=== PATIENT | female | born 2000 | race African-American/Black ===

== ENCOUNTER 2018-12-31 06:35 | Inpatient (IN) ==
[2018-12-31 07:24] LABS: URINE SOURCE VOIDED
[2018-12-31 07:46] LABS: BILIRUBIN URINE NEGATIVE (NEGATIVE); BLOOD URINE NEGATIVE (NEGATIVE); CLARITY CLEAR (CLEAR); COLOR YELLOW; GLUCOSE URINE NEGATIVE (NEGATIVE); KETONE URINE TRACE mg/dL (NEGATIVE); LEUKOCYTES URINE 1+ (NEGATIVE); NITRITE URINE NEGATIVE (NEGATIVE); PROTEIN URINE 1+(30 mg/dL) mg/dL (NEGATIVE); UROBILINOGEN URINE 1 mg/dL
[2018-12-31 08:01] LABS: UR AMPHETAMINES QUAL NONE DETECTED (NONE DETECT); UR BARBITUATES QUAL NONE DETECTED (NONE DETECT); UR BENZODIAZEPIN QUAL NONE DETECTED (NONE DETECT); UR CANNABINOIDS QUAL NONE DETECTED (NONE DETECT); UR COCAINE QUAL NONE DETECTED (NONE DETECT); UR METHADONE QUAL NONE DETECTED (NONE DETECT); UR METHAMPHETAMINE QUAL NONE DETECTED (NONE DETECT); UR OPIATES QUAL NONE DETECTED (NONE DETECT); UR OXYCODONE QUAL NONE DETECTED (NONE DETECT); UR PCP QUAL NONE DETECTED (NONE DETECT); UR PROPOXYPHENE QUAL NONE DETECTED (NONE DETECT); UR TCA QUAL NONE DETECTED (NONE DETECT)
[2018-12-31] MEDS ORDERED: PEPCID PO ONE (08:32)
[2018-12-31] MEDS ORDERED: PEPCID PO PRN (08:32)
[2018-12-31] MEDS ORDERED: KEFZOL 1 GM/D5W 1 GM/50 ML IVPB IV PRN (08:32)
[2018-12-31] MEDS ORDERED: TYLENOL PO PRN (08:32)
[2018-12-31] MEDS ORDERED: REGLAN PO ONE (08:32)
[2018-12-31] MEDS ORDERED: ZOFRAN IV PRN (08:32)
[2018-12-31] MEDS ORDERED: PEPCID IV PRN (08:32)
[2018-12-31] MEDS ORDERED: PITOCIN 30 UNITS/NS 30 UNIT/500 ML IV.SOLN IV SCH (08:45)
[2018-12-31] MEDS ORDERED: SODIUM CHLORIDE 0.9% INJ SCH (08:45)
--- NOTE | 2018-12-31 08:48 | HISTORY AND PHYSICAL ---
HISTORY OF PRESENT ILLNESS: Ms. Grant is a 18-year-old G 1, P 0, at 39 weeks and 4 days, who presents to Labor and Delivery with complaint of rupture of membranes. The patient reporting good movement. Denies contractions or vaginal bleeding. The patient also denies fevers, chills, nausea, or vomiting. PAST MEDICAL HISTORY: Significant for anxiety, depression. MEDICATIONS: Include vitamins. PAST SURGICAL HISTORY: None. OBSTETRICAL HISTORY: Denies STI exposure. Menarche at age 10. OB HISTORY: G 1, P 0. ALLERGIES: Clindamycin. SOCIAL HISTORY: Denies tobacco, alcohol, or drug use. FAMILY HISTORY: Noncontributory. PHYSICAL EXAMINATION: VITAL SIGNS: Temperature 97 degrees Fahrenheit, pulse rate 76, respiration rate 16, blood pressure 117/61, O2 saturation is 100% on room air. GENERAL: No acute distress. Alert, awake, oriented x3. CARDIOVASCULAR: Regular rate and rhythm. Positive S1, S2. RESPIRATION: Clear to auscultation bilaterally. ABDOMEN: Gravid, soft, nontender to palpation. EXTREMITIES: Negative calf tenderness. 1+ edema bilaterally. GENITOURINARY: Sterile speculum exam: Positive rupture of membranes noted with ROM plus positive. Sterile vaginal exam 1 cm dilated, 70% effaced, -3, firm, posterior. Electronic monitoring. External monitoring category 1 tracing. Tocolysis, irregular contractions. LABS: GBS negative, Rh negative. ASSESSMENT: Ms. Grant is a 18-year-old, 1, para 0, at 39 weeks and 4 days, who presents to Labor and Delivery with spontaneous rupture of membranes, not in active labor. PLAN: 1. Admit to Labor and Delivery for augmentation of labor. 2. Obtain routine labor orders. 3. Augmentation with Pitocin. 4. Estimated weight 7 pounds. 5. Anticipate vaginal delivery. 6. Continue external monitoring.
[2018-12-31 09:08] LABS: BASO# 0.02 X1000 (0.0-0.2); BASO% 0.2 % (0.0-0.8); EOS# 0.01 X1000 (0.0-0.7); EOS% 0.1 % (0.0-10.0); HEMATOCRIT 37.7 % (37.0-47.0); HEMOGLOBIN 12.9 g/dL (12.0-16.0); IMM GRAN# 0.02 X1000 (0.0-0.04); IMM GRAN% 0.2 % (0.0-0.5); LYMPH# 2.67 X1000 (1.2-3.4); MCHC 34.2 g/dL (33-37); MCV 84.7 FL (81-99); MONO% 6.2 % (1.7-9.3); MPV 10.6 FL (7.4-10.4); NEUT# 4.88 X1000 (1.4-6.5); NEUT% 60.3 % (42.2-75.2); PLT 214 X1000 (130-400); RBC 4.45 XMIL (4.2-5.4); RDW 13.2 % (11.5-14.5)
[2018-12-31] MEDS: LR 1,000 ML IV SCH ×5 (09:42→22:56)
[2018-12-31] MEDS: STADOL IV PRN ×2 (10:00→12:49)
[2018-12-31] MEDS ORDERED: MINERAL OIL TOP PRN (10:09)
[2018-12-31] MEDS ORDERED: XYLOCAINE-MPF 1% INJ PRN (10:09)
[2018-12-31] MEDS ORDERED: NAROPIN 0.5% INJ ONE (13:44)
[2018-12-31] MEDS ORDERED: NAROPIN 0.2% INJ ONE (15:45)
[2018-12-31] MEDS ORDERED: FENTANYL-BUPIV-NS 2 MCG-0.1% 200 ML EPIDURAL SCH (16:00)
[2018-12-31] MEDS ORDERED: STADOL IV PRN (16:00)
[2018-12-31] MEDS ORDERED: SODIUM CHLORIDE 0.9% 0 ML ONE (16:52)
[2018-12-31] MEDS ORDERED: EPHEDRINE ONE (16:52)
[2018-12-31] MEDS ORDERED: BICITRA PO ONE (21:50)
[2018-12-31] MEDS ORDERED: REGLAN IV ONE (21:51)
[2018-12-31] MEDS ORDERED: NAROPIN 0.5% ONE (23:33)
[2019-01-01] MEDS ORDERED: TORADOL ONE (00:12)
[2019-01-01] MEDS ORDERED: PITOCIN ONE (00:12)
[2019-01-01] MEDS ORDERED: DURAMORPH ONE (00:24)
[2019-01-01] MEDS ORDERED: ZOFRAN ONE (00:30)
[2019-01-01] MEDS ORDERED: DULCOLAX PR PRN (01:14)
[2019-01-01] MEDS ORDERED: NORCO-5 PO PRN (01:14)
[2019-01-01] MEDS ORDERED: PITOCIN IM PRN (01:14)
[2019-01-01] MEDS ORDERED: PHENERGAN IM PRN (01:14)
[2019-01-01] MEDS ORDERED: BOOSTRIX VACCINE IM ONE (01:14)
[2019-01-01] MEDS ORDERED: HYDROXYZINE IM PRN (01:14)
[2019-01-01] MEDS ORDERED: PITOCIN 20 UNITS/NS 20 UNITS/1,000 ML IV.SOLN IV ONE (01:14)
[2019-01-01] MEDS ORDERED: M-M-R II VACCINE SUBQ ONE (01:14)
[2019-01-01] MEDS ORDERED: MYLICON PO PRN (01:14)
[2019-01-01] MEDS ORDERED: DEMEROL IM PRN (01:14)
[2019-01-01] MEDS ORDERED: DEMEROL PO PRN ×2 (01:14)
[2019-01-01] MEDS ORDERED: ATARAX PO PRN (01:14)
[2019-01-01] MEDS ORDERED: PITOCIN 10 UNITS/NS 1,000 ML IV SCH (01:15)
[2019-01-01] MEDS ORDERED: MORPHINE IV PRN (01:41)
[2019-01-01] MEDS ORDERED: PHENERGAN IV PRN (01:44)
[2019-01-01] MEDS ORDERED: ZOFRAN ODT PO PRN (01:45)
[2019-01-01] MEDS ORDERED: ZOFRAN IV PRN ×2 (01:45)
[2019-01-01] MEDS ORDERED: SODIUM CHLORIDE 0.9% INJ PRN (01:45)
[2019-01-01] MEDS ORDERED: NARCAN INJ PRN (01:45)
--- NOTE | 2019-01-01 02:30 | OPERATIVE NOTE ---
PROCEDURE DATE: 01/01/2019 PREOPERATIVE DIAGNOSIS: Intrauterine (IUP) at 39 and 4/7 weeks with spontaneous rupture membranes and intolerance of labor. POSTOPERATIVE DIAGNOSES: 1. Intrauterine (IUP) at 39 and 4/7 weeks with spontaneous rupture membranes and intolerance of labor. 2. Operative delivery of a female , 5 pounds 3 ounces, with 's of 9 and 10 at 0028 hours on 01/01/2019. PROCEDURE: Primary low-transverse . SURGEON: Dr. Dennis Luna III. ASSIST: OR team. Anesthesia: Epidural, Dr. Quevedo. FINDINGS: Normal-appearing uterus, tubes, and ovaries. COMPLICATIONS: None. ESTIMATED BLOOD LOSS: 500 mL. SPECIMENS REMOVED: None. DRAINS: Casas to straight drain. COUNTS: All counts were correct x3. INDICATIONS: Patient is a 18-year-old female, she is G1, P0 at 39 and 4/7 weeks with spontaneous rupture of membranes. The patient had been placed on Pitocin but had intolerance of labor, and after several times of resuscitative efforts and then retrying Pitocin, the fetus continued to have a nonreassuring heart rate. Discussed with patient about the need to proceed with operative delivery and the patient was counseled about the risks of surgery, including bleeding, infection, bowel or bladder injury. PROCEDURE REPORT: Patient was taken to the OR. Epidural was re-dosed. She was placed in supine position and adequate anesthesia was noted by using Allis clamps on skin, and in the patient was prepped and draped in a sterile fashion. A Pfannenstiel skin incision was made on lower abdomen using a scalpel. This was taken down sharply to the fascial layer. A small leno was made in the rectus fascia. Fascial incision was then extended bilaterally by curved Ahumada scissors. Then blunt and sharp dissection of the superior and inferior aspects of the rectus fascia was performed. Rectus muscles were then divided in the midline. Peritoneal layer was entered bluntly. The peritoneal incision was extended superiorly and inferiorly, with care taken to avoid the bladder. Bladder reflection was created using Metzenbaum scissors. Bladder blade was placed into the abdominal cavity. Then, a transverse incision was made on lower uterine segment using scalpel. This was then extended bilaterally by the surgeon's fingers. The head was then elevated toward the hysterotomy site and delivered atraumatically with gentle fundal pressure. Bulb suction of nose and mouth, and the rest the body was then delivered atraumatically with gentle fundal pressure. The umbilical cord was clamped twice and cut. Infant handed to nursery nurse in attendance for delivery. The umbilical cord blood sample was obtained at this time. The placenta was then manually extracted. Uterus was exteriorized. Wet lap was placed around the uterus. Dry lap was then used to curette the uterine cavity of clots and debris. Uterine incision was then closed using 0 chromic in a running fashion x1. An area of oozing on the left side made hemostatic with several [id number] stitches. At this point in time, the posterior cul-de-sac was then irrigated, then the uterus was replaced back into the abdominal cavity. Pericolic gutters were cleansed using moist lap sponges. The uterine incision was inspected as well as a bladder reflection, and good hemostasis was noted. The peritoneal incision was then closed using 2-0 chromic in a running fashion x1, and then 2 interrupted sutures were used to reapproximate the rectus muscle. The fascia layer was then closed using 0 PDS in a running fashion x1. Electrocautery and irrigation were then employed in the subcutaneous tissue. Then, the skin was then reapproximated using moo. Patient tolerated procedure well, was taken recovery in stable condition. All counts were correct x3. cc: Dennis Luna III, MD
[2019-01-01] MEDS: BENADRYL IV PRN ×2 (06:57→12:58)
[2019-01-01] MEDS ORDERED: PITOCIN 20 UNITS/NS 20 UNITS/1,000 ML IV.SOLN ONE (10:10)
[2019-01-01] MEDS: TORADOL IV SCH ×3 (10:53→21:47)
[2019-01-01] MEDS: MYLICON PO SCH ×4 (12:58→21:53)
[2019-01-01] MEDS: PERICOLACE PO SCH (21:53)
[2019-01-02] MEDS: AMBIEN PO PRN ×2 (00:07→23:30)
[2019-01-02] MEDS: BENADRYL IV PRN (00:07)
[2019-01-02] MEDS ORDERED: LR 1,000 ML IV SCH (01:15)
[2019-01-02 07:32] LABS: BASO# 0.02 X1000 (0.0-0.2); BASO% 0.2 % (0.0-0.8); EOS# 0.02 X1000 (0.0-0.7); EOS% 0.2 % (0.0-10.0); HEMATOCRIT 33.5 % (37.0-47.0); HEMOGLOBIN 10.7 g/dL (12.0-16.0); IMM GRAN# 0.01 X1000 (0.0-0.04); IMM GRAN% 0.1 % (0.0-0.5); LYMPH% 22.2 % (20.5-51.1); MCH 27.5 PG (27-31); MCHC 31.9 g/dL (33-37); MCV 86.1 FL (81-99); MONO# 0.55 X1000 (0.11-0.59); MONO% 5.8 % (1.7-9.3); NEUT# 6.77 X1000 (1.4-6.5); NEUT% 71.5 % (42.2-75.2); PLT 180 X1000 (130-400); RBC 3.89 XMIL (4.2-5.4); RDW 13.1 % (11.5-14.5); WBC 9.47 X1000 (4.8-10.8)
[2019-01-02] MEDS: MOTRIN PO PRN ×2 (09:21→18:27)
[2019-01-02] MEDS: NORCO-10 PO PRN ×4 (09:21→23:30)
[2019-01-02] MEDS: MYLICON PO SCH ×3 (09:23→17:40)
[2019-01-02] MEDS: TORADOL IV SCH (10:30)
--- NOTE | 2019-01-02 11:42 | OB/GYN PROGRESS NOTE ---
Progress Note OB - . OB Progress Note: Vital Signs - 24 hr 01/01/19 12:11 01/01/19 15:32 01/01/19 19:48 Temperature 96.7 F L 97.4 F L 97.2 F L Pulse Rate 97 H 95 H 77 Respiratory Rate 18 18 18 Blood Pressure 108/65 127/58 123/67 O2 Sat by Pulse Oximetry 97 97 01/02/19 00:10 01/02/19 04:26 01/02/19 07:10 Temperature 97.1 F L 97.2 F L 99.1 F Pulse Rate 83 70 Respiratory Rate 18 18 Blood Pressure 141/89 118/69 O2 Sat by Pulse Oximetry 01/02/19 08:05 01/02/19 10:25 Temperature 99.3 F 98.1 F Pulse Rate 64 66 Respiratory Rate 16 16 Blood Pressure 159/99 117/62 O2 Sat by Pulse Oximetry 98 98 Laboratory Results - last 24 hr 01/02/19 01/02/19 01/02/19 06:14 06:14 06:14 WBC 9.47 RBC 3.89 L Hgb 10.7 L D Hct 33.5 L MCV 86.1 MCH 27.5 MCHC 31.9 L RDW Std Deviation 13.1 Plt Count 180 MPV 11.0 H Immature Gran % (Auto) 0.1 Neut % (Auto) 71.5 Lymph % (Auto) 22.2 [place]ois % (Auto) 5.8 Eos % (Auto) 0.2 Baso % (Auto) 0.2 Immature Gran # (Auto) 0.01 Neut # (Auto) 6.77 H Lymph # (Auto) 2.10 [place] # (Auto) 0.55 Eos # (Auto) 0.02 Baso # (Auto) 0.02 ABO/Rh Cancelled B NEGATIVE Weak D (Du) Cancelled WEAK D NEGATIVE Screen NEGATIVE RhIG Candidate? Cancelled NO POD 1 primary c.section. No complaints. Pt is bottle feeding. Fundus is firm and mild tenderness. No calf tenderness. Abd: soft and nontender. A/P: POD 1 c.section doing well.
[2019-01-02] MEDS: PERICOLACE PO SCH (23:30)
[2019-01-03] MEDS: MOTRIN PO PRN ×2 (03:02→12:59)
[2019-01-03] MEDS: NORCO-10 PO PRN ×2 (03:02→13:00)
[2019-01-03] MEDS: MYLICON PO SCH ×2 (10:14→13:00)
[2019-01-03 13:05] VITALS: BP 136/90
--- NOTE | 2019-01-04 10:54 | DISCHARGE SUMMARY ---
ADMISSION DATE: 12/31/2018 DISCHARGE DATE: 01/03/2019 ADMISSION DIAGNOSIS: Intrauterine 39 and 4/7 weeks with spontaneous rupture of membranes. FINAL DIAGNOSES: 1. Intrauterine 39 and 4/7 weeks with spontaneous rupture of membranes with intolerance of labor. 2. Operative delivery of a female , 5 pounds 3 ounces, with Apgars of 9 and 10 at 0028 hours on 01/01/2019. PROCEDURE: Primary low-transverse . BRIEF HISTORY: The patient is 18-year-old black female, G 1, P 0 at 39 and 4/7 weeks, who presents to labor and delivery with complaint of rupture of membranes. The patient reports good movement. Denies contractions or vaginal bleeding. PAST MEDICAL HISTORY: Significant for anxiety and depression. MEDICATIONS: vitamins. PAST SURGICAL HISTORY: None. PAST OB HISTORY: G 1, P 0. ALLERGIES: Clindamycin. SOCIAL HISTORY: Tobacco use, alcohol use: None. FAMILY HISTORY: Noncontributory. PHYSICAL EXAMINATION: Vital Signs: Temperature 97 degrees, pulse 76, respirations 16, blood pressure 117/61. General: No acute distress noted. Alert and oriented x3. Heart: Regular rate and rhythm. Lungs: Clear to auscultation. Abdomen: Gravid, nontender. Extremities: Negative calf tenderness. Pelvic: Sterile speculum exam was performed and this was positive for rupture of membranes. Cervix was 1 cm dilated, 70% effaced, -3 station. LABS: Rh is negative and group B strep is negative. ASSESSMENT: A 18-year-old black female, 1, para 0 at 39 and 4/7 weeks with spontaneous rupture of membranes. The patient will be augmented with Pitocin. HOSPITAL COURSE: The patient was placed on Pitocin, but had continued episodes of intolerance of labor with no significant progress into active labor, and at a point in time discussed with patient about the need to proceed with delivery due to the fetus' intolerance of labor. Discussed with patient about the risks of surgery including bleeding, infection, bowel or bladder injury, and then patient had operative delivery of a female infant, 5 pounds 3 ounces, with Apgars of 9 and 10 at 0028 hours on 01/01/2019. POSTOPERATIVE COURSE: The patient had a postop hemoglobin of 10.7 and hematocrit of 33.5. Patient was advanced on her diet and had Casas disconnected, became ambulatory. Then on postop day #2, had positive flatus. At this point in time, it was felt she could be discharged home. DISCHARGE PLANS: The patient will be discharged home. She will follow up in 1 week for staple removal. Patient discharged home on pelvic rest for 6 weeks, lifting precautions for 6 weeks. DISCHARGE MEDICATIONS: The patient will be given discharge medications, includin. [place] 10 dispense 20 with no refills. 2. Colace 100 mg. 3. Iron sulfate 325 mg dispense 30. 4. Motrin 800 mg dispense 30. cc: Dennis Luna III, MD
== END 2019-01-03 14:35 | disposition home or self-care (01) | DRG 788 ==
LOC: P.NBC 06:35 → P.LD 06:37
PROVIDERS: ADMIT Obstetrics & Gynecology; ATTEND Obstetrics & Gynecology